=== PATIENT | male | born 1980 | race African-American/Black ===

== ENCOUNTER 2020-05-25 16:31 | Emergency (ER) | payer MEDICAID ==
[2020-05-25] MEDS ORDERED: Sodium Bicarbonate 8.4% 50 MEQ/50 ML Syringe ONE ×2 (16:45)
[2020-05-25] MEDS ORDERED: EPINEPHrine 1:10,000 1 MG/10 ML Syringe ONE (16:45)
--- NOTE | 2020-05-25 17:00 | EDM.PDOC ---
ED HPI GENERAL MEDICAL PROBLEM - General Chief Complaint: CPR in Progress Stated Complaint: [facility] Time Seen by Provider: 05/25/20 16:31 Source of Information: Reports: EMS, Police History Limitations: Reports: Other (39-year-old male presents to the ED with CPR in progress.) - History of Present Illness INITIAL COMMENTS - FREE TEXT/NARRATIVE: 39-year-old male of -[place] descent presents to the ED per [place] [facility] with CPR in progress. History provided by EMS staff indicates that they were summoned to [facility] due to a male having a seizure. Appears that he developed symptoms while riding in a vehicle on the highway. Fairly that he has 3 young children to the vehicle a and his mother. Further history will be gleaned from them when they are available. Paramedics indicated that his pupils are fixed and dilated upon their arrival. A Matthew airway was placed and an IV was established. He received 2 doses of epinephrine 1 mg dose IV prior to arrival in the ED. There rhythm showed fine V. fib. He received defibrillation x3 by paramedics. Upon arrival in the ED his pupils were fixed and dilated. The Carlos device was placed in place of CPR that was in progress. He had a Matthew airway in place with good air entry to both lung kimball on Ambu bag insufflation. Patient subsequently received for further aliquots of 1 mg epinephrine IV and 3 ampoules of sodium bicarb with no response to heart rhythm. He remained in fine V. fib. Defibrillation x1 was carried out in the department and essentially he went into asystole. No spontaneous pulses were ever obtained. Pronounced at 1649 hrs. Kennel Aide has been subsequently contacted. Other history obtained from his girlfriend who was riding in the vehicle with him as well as her daughter and his stepson. Patient apparently had eaten at [employer] in [place] and shortly thereafter started to feel chest discomfort and indigestion. He then vomited on 3 or 4 occasions making them stop the vehicle between [place] and [place]. As far as the girlfriend knows no hematemesis occurred. He was then laying in the backseat with his head on her lap. They stopped in [place] where he got some Pepto-Bismol and Tums and/or rate Rolaids which did not help his stomach discomfort. Somewhere between [facility] and [place] patient went unresponsive. His girlfriend indicates she asked him if he wanted to go to the hospital prior to this and he had declined. She appreciated that he became extremely diaphoretic and cool to touch prior to becoming unresponsive. She believes 5 to 10 minutes outside of [place] he went unresponsive with his eyes rolled back up in the has had with no spontaneous breathing. They pulled into [facility] on the side of [place] of the [address] where paramedics were summoned. To her knowledge she has no known heart history. Apparently has blood pressure that is not well controlled. Not known to be diabetic. Onset: Today, Sudden Duration: Minutes: Past Medical History Cardiovascular History: Reports: Hypertension Social & Family History - Living Situation & Occupation Living situation: Reports: with Significant Other ED ROS GENERAL - Review of Systems Review Of Systems: Unable To Obtain Reason Not Obtained: Patient arrived with CPR in progress and was unresponsive ED EXAM, CPR - Physical Exam Exam: See Below Limited By: Unresponsive (With CPR in progress and a Matthew airway in his airway.) General Appearance: Other (Was were fixed and dilated upon initial evaluation.) Eye Exam: Bilateral Eye: Other (Pupils are fixed and dilated at 8 to 9 mm and not responding to light. At initial onset of resuscitation) Throat/Mouth: Other (Ambu bag.) Respiratory Chest: Other (But air entry to both lung kimball on insufflation of Ambu bag indicating proper placement of Matthew airway.) Cardiovascular: Other (Patient exhibited fine V. fib on the monitor. No palpable pulses and no spontaneous breathing) GI/Abdominal Exam: Other (And slightly tympany to percussion) Skin Exam: Intact, Other (Skin is cool to touch. There were no outward signs of any trauma to head neck chest abdomen or pelvis.) Course - Orders/Labs/Meds Meds: Medications Discontinued Medications Generic Name Dose Route Start Last Admin Trade Name Freq PRN Reason Stop Dose Admin Sodium Bicarbonate Confirm 05/25/20 16:45 Sodium Bicarbonate 8.4% Administered 05/25/20 16:46 Dose 50 meq .ROUTE .STK-MED ONE - Radiology Interpretation Free Text/Narrative:: 39-year-old male of -[place] descent presented to the ED with CPR in progress. Traveling back from [place] with his girlfriend whom he resides with and a younger son and daughter who appeared to be in their teens or early 20s. Patient started to complain of dyspepsia indigestion after eating at [employer] in [place] this afternoon. Somewhere between [place] and [place] and he started to vomit and had to stop the car and at least 3 separate occasions for him to vomit. Concern was whether or not he may have developed some food poisoning. They stopped and [place] and due to his continued pain in his epigastrium and indigestion for Pepto-Bismol and Rolaids or Tums. He ingested these with no relief. He felt bad enough that he decided to get in the backseat with his girlfriend and laid his head on her lap. Stepson drove the vehicle. Approximately 5 to 8 miles out of town it was identified that his eyes were rolled back him in his head and he did not respond to verbal or physical stimuli and and was no longer breathing. They drove us fast they could to the nearest service station which was [facility] on the side of [facility] and 911 was called. Paramedics met them there. They identified him to be in cardiac arrest with fine V. fib on the monitor. An IV was established Matthew airway was placed. CPR was commenced. He did receive 2 A of epinephrine intravenously which did not change his rhythm. Upon arrival in the ED he was in fine V. fib with no palpable pulses and no spontaneous respirations. The resuscitation efforts were carried out. He received a total of 4 Ampules of epinephrine IV and 3 Ampules of bicarbonate IV and the Carlos device provided CPR. CPR was stopped every 3 minutes and identified that he remained in fine V. fib and at the end he was in asystole. Sepsis date of efforts were therefore stopped and the patient was pronounced at 1649 hrs. call out operator bobbi Hooper was notified and he will attend the patient in the ED. 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 - Re-Assessments/Exams Free Text/Narrative Re-Assessment/Exam: 05/25/20 19:03 patient's body was released to [facility] at 1837 hrs. Departure - Departure Time of Disposition: 18:37 (Was released to [facility] at this time.) Disposition: 20 Clinical Impression: Cardiac arrest - Discharge Information *PRESCRIPTION DRUG MONITORING PROGRAM REVIEWED*: Not Applicable *COPY OF PRESCRIPTION DRUG MONITORING REPORT IN PATIENT RAND: Not Applicable Forms: ED Department Discharge Critical Care Note - Critical Care Note Total Time (mins): 20
== END 2020-05-25 18:37 | disposition expired ==
LOC: JD.ED 16:31
DX: I46.9 Cardiac arrest, cause unspecified (principal); I10 Essential (primary) hypertension
CPT/HCPCS: 99285; J0171; 99283